=== PATIENT | female | born 1985 ===

== ENCOUNTER 2018-07-09 21:36 | Emergency (ER) | payer OTHER ==
[2018-07-09] MEDS ORDERED: Albuterol-Ipratrop 3 mg / 0.5 (3 ml) UD INH STA (21:56)
[2018-07-09 22:24] VITALS: RESP 18
[2018-07-09] MEDS ORDERED: Dextrose 5%/Lactated Ringer's 1,000 ML IV SCH (22:30)
[2018-07-09] MEDS ORDERED: Lactated Ringer's 1,000 ML IV STA (22:30)
[2018-07-09 22:41] LABS: BASO % 0.3 % (0.0-2.0); LYMPH # 0.8 K/uL (1.0-4.3); LYMPH % 9.2 % (20.0-40.0); MEAN CELL VOLUME 94.2 fl (81.0-99.0); MEAN CORPUSCULAR HGB CONC 33.9 g/dL (33.0-37.0); MEAN PLATELET VOLUME 8.3 fl (7.2-11.7); MONO # 0.7 K/uL (0.0-0.8); MONO % 7.6 % (0.0-10.0); NEUT # 7.6 K/uL (1.8-7.0); NEUT % 82.9 % (50.0-75.0); NRBC % 0.1 % (0.0-0.0); PLATELET COUNT 251 K/uL (130-400); RBC 4.38 Mil/uL (3.80-5.20); RED CELL DISTRIBUTION WIDTH 13.6 % (11.5-14.5); WHITE BLOOD COUNT 9.2 K/uL (4.8-10.8)
[2018-07-09 22:50] LABS: ALB/GLOB RATIO 1.2 (1.0-2.1); ALBUMIN 4.8 g/dL (3.5-5.0); ALT/SGPT 41 U/L (9-52); AST/SGOT 34 U/L (14-36); BLOOD UREA NITROGEN 13 mg/dl (7-17); CALCIUM 9.9 mg/dL (8.4-10.2); GFR NON-AFRICAN AMERICAN > 60
[2018-07-09 23:07] LABS: ANISOCYTOSIS SLIGHT; BANDS 9 % (0-2); LARGE PLATELETS PRESENT; LYMPHOCYTE 11 % (20-50); MONOCYTE 6 % (0-10); NEUTROPHIL 74 % (42-75); OVALOCYTES SLIGHT; PLATELET ESTIMATE NORMAL (NORMAL); POIKILOCYTOSIS SLIGHT; TOTAL CELLS COUNTED 100
--- NOTE | 2018-07-09 23:21 | ED PDOC ---
HPI: SOB/CHF/COPD Time Seen by Provider: 07/09/18 21:48 Chief Complaint (Nursing): Shortness Of Breath Chief Complaint (Provider): Asthma History Per: Patient History/Exam Limitations: no limitations Onset/Duration Of Symptoms: Days (x4) Current Respiratory Medications: Prednisone Associated Symptoms: Fever, Chest Pain Additional Complaint(s): 32 y/o female with history of moderate asthma presents to the ED complaining of asthma. Patient reports x4 days ago, on Tuesday, she started having a dry cough and x2 days ago on Tuesday she started to feel a chest tightness and wheezing consistent with asthma. Patient reports she started herself on an unfinished pack of Prednisone from last year and also started leftover Augmentin from last year with no relief. She states she has been using her nebulizer constantly also with no relief. Patient reports she has had a fever for the past x2 days. She reports minimal runny nose but has congestion. She also had an episode of vomiting today. Denies diarrhea or sore throat. Past Medical History Reviewed: Historical Data, Nursing Documentation, Vital Signs Vital Signs: Last Vital Signs Temp 100.8 F H 07/09/18 21:39 Pulse 114 H 07/09/18 21:39 Resp 18 07/09/18 22:21 BP 120/87 07/09/18 21:39 Pulse Ox 99 07/09/18 22:21 - Medical History PMH: Asthma (Has been hospitalized but never intubated) - Surgical History Surgical History: No Surg Hx - Family History Family History: States: Unknown Family Hx - Social History Current smoker - smoking cessation education provided: No - Home Medications Home Medications: Ambulatory Orders Medication Instructions Recorded Azithromycin [Zithromax] 250 mg PO DAILY #6 tab 07/10/18 RX: Albuterol HFA [Ventolin HFA 90 1 - 2 puff IH Q4H PRN #1 bottle 07/10/18 mcg/actuation (8 g)] predniSONE [Prednisone] 40 mg PO DAILY #8 tab 07/10/18 - Allergies Allergies/Adverse Reactions: Allergies Allergy/AdvReac Type Severity Reaction Status Date / Time No Known Allergies Allergy Verified 07/09/18 21:42 Review of Systems ROS Statement: Except As Marked, All Systems Reviewed And Found Negative (and as per HPI) Constitutional: Positive for: Fever ENT: Positive for: Nose Discharge (minimal), Nose Congestion. Negative for: Throat Pain Cardiovascular: Positive for: Chest Pain Respiratory: Positive for: Cough, Wheezing Gastrointestinal: Positive for: Vomiting. Negative for: Diarrhea Physical Exam - Reviewed Nursing Documentation Reviewed: Yes Vital Signs Reviewed: Yes - Physical Exam Appears: Positive for: Non-toxic (Febrile), In Acute Distress Head Exam: Positive for: ATRAUMATIC, NORMOCEPHALIC Skin: Positive for: Warm, Dry Eye Exam: Positive for: EOMI, Normal appearance, PERRL ENT: Negative for: Pharyngeal Erythema, Tonsillar Exudate Neck: Positive for: Painless ROM, Supple Cardiovascular/Chest: Positive for: Regular Rate, Rhythm. Negative for: Murmur Respiratory: Positive for: Wheezing (diffuse inspiratory and expiratory), Respiratory Distress (acute). Negative for: Accessory Muscle Use, Rhonchi Gastrointestinal/Abdominal: Positive for: Soft. Negative for: Tenderness Back: Positive for: Normal Inspection. Negative for: Muscle Spasm Extremity: Positive for: Normal ROM. Negative for: Deformity Lymphatic: Negative for: Adenopathy Neurologic/Psych: Positive for: Alert. Negative for: Motor/Sensory Deficits - Laboratory Results Result Diagrams: 07/09/18 22:35 07/09/18 22:35 - ECG O2 Sat by Pulse Oximetry: 99 (RA) Pulse Ox Interpretation: Normal Medical Decision Making Medical Decision Making: Time: 21:55 Impression: Asthma exacerbation Differential diagnosis included but not limited to bronchitis, pneumonia, influenza, viral syndrome. Initial Plan: * EKG * CMP * Lact acid * ED Urine dip * ED preg * CBC w/ diff * CXR * Duoneb 9 ml INH * soluMedrol 125 mg IV * Tylenol 975 mg * Blood culture CXR with infiltrate Azithro initiated in ER for pneumonia Endorsed to Dr Núñez pending reassessment --- Scribe Attestation: Documented by Fan Gilliland, acting as a scribe for Paty Gonzalez MD. Provider Scribe Attestation: All medical record entries made by the Scribe were at my direction and personally dictated by me. I have reviewed the chart and agree that the record accurately reflects my personal performance of the history, physical exam, medical decision making, and the department course for this patient. I have also personally directed, reviewed, and agree with the discharge instructions and disposition. Disposition - Clinical Impression Clinical Impression: Asthma attack Counseled Patient/Family Regarding: Studies Performed, Diagnosis - Disposition Disposition: Transfer of Care Disposition Time: 00:00 Condition: STABLE Additional Instructions: follow up with your doctor in 2 days for reevaluation return to ED with any worsening or concerning symptoms Prescriptions: RX: Albuterol HFA [Ventolin HFA 90 mcg/actuation (8 g)] 1 - 2 puff IH Q4H PRN #1 bottle PRN Reason: Wheezing Azithromycin [Zithromax] 250 mg PO DAILY #6 tab predniSONE [Prednisone] 40 mg PO DAILY #8 tab
[2018-07-09] MEDS ORDERED: Azithromycin 500 MG IV IVPB ONE (23:27)
--- NOTE | 2018-07-10 00:17 | ED PDOC ---
- Laboratory Results Result Diagrams: 07/09/18 22:35 07/09/18 22:35 - ECG O2 Sat by Pulse Oximetry: 99 (RA) Pulse Ox Interpretation: Normal Medical Decision Making Medical Decision Making: Time: 00:00 Patient care endorsed from Dr. Gonzalez to provider pending reevaluation. 01:13 On reevaluation patient still has a slight wheeze. Patient appears comfortable and reports she is feeling a lot better than before. Will administer another Duoneb and reevaluate. 230 am pt feels better. 02 sat normal. will dc with prescriptions fo rher and outpt follow up pt agreeable to plan. Scribe Attestation: Documented by Fan Gilliland, acting as a scribe for Oliver Núñez MD. Provider Scribe Attestation: All medical record entries made by the Scribe were at my direction and personally dictated by me. I have reviewed the chart and agree that the record accurately reflects my personal performance of the history, physical exam, medical decision making, and the department course for this patient. I have also personally directed, reviewed, and agree with the discharge instructions and disposition. Disposition Counseled Patient/Family Regarding: Studies Performed, Diagnosis, Need For Followup - Clinical Impression Clinical Impression: Asthma attack - POA Present On Arrival: None - Disposition Disposition: Routine/Home Disposition Time: 02:40 Condition: IMPROVED Additional Instructions: follow up with your doctor in 2 days for reevaluation return to ED with any worsening or concerning symptoms Prescriptions: RX: Albuterol HFA [Ventolin HFA 90 mcg/actuation (8 g)] 1 - 2 puff IH Q4H PRN #1 bottle PRN Reason: Wheezing Azithromycin [Zithromax] 250 mg PO DAILY #6 tab predniSONE [Prednisone] 40 mg PO DAILY #8 tab
[2018-07-10] MEDS ORDERED: Azithromycin 500 MG in Sodium Chloride 0.9% 250 ML IVPB STA (00:26)
[2018-07-10] MEDS ORDERED: Albuterol-Ipratrop 3 mg / 0.5 (3 ml) UD INH STA (01:13)
[2018-07-10 01:15] VITALS: O2SAT 99
[2018-07-10] MEDS ORDERED: Albuterol-Ipratrop 3 mg / 0.5 (3 ml) UD ONE (02:12)
[2018-07-10] MEDS ORDERED: Albuterol-Ipratrop 3 mg / 0.5 (3 ml) UD INH PRN (02:45)
[2018-07-10 03:07] VITALS: BP 124/81; PULSE 71; TEMP 98.7
--- NOTE | 2018-07-10 08:54 | RAD ---
Date of service: 07/09/2018 HISTORY: Cough, chest pain, asthma COMPARISON: No prior. TECHNIQUE: Chest PA and lateral FINDINGS: LINES AND TUBES: None. LUNG AND PLEURA: The lungs are well inflated. There is patchy airspace disease in the left lower lobe. No pleural effusion or pneumothorax. HEART AND MEDIASTINUM: The heart is not enlarged. No aortic atherosclerotic calcification present. The hilar and mediastinal contours are within normal limits. SKELETAL STRUCTURES: The bony structures are within normal limits for the patient's age. VISUALIZED UPPER ABDOMEN: Normal. OTHER FINDINGS: None. IMPRESSION: Patchy airspace disease in the left lower lobe may represent subsegmental atelectasis or developing pneumonia. Follow-up after medical management is recommended to ensure complete resolution.
--- NOTE | 2018-07-10 16:33 | CARD ---
APPROVED REPORT Date of service: 07/09/2018 EKG Measurement Heart [id number] <Conclusion> Normal sinus rhythm Normal ECG
== END 2018-07-10 03:07 | disposition home or self-care (01) ==
LOC: H.ER 21:36
DX: J45.901 Unspecified asthma with (acute) exacerbation (principal)
CPT/HCPCS: 71046; 80053; 81025; 83605; 85025; 87040; 93005; 94150; 94640; 96374; 99285; J0456; J2930; J7050; J7120